=== PATIENT | male | born 1955 | race Hispanic/Latino ===

== ENCOUNTER 2017-02-16 19:42 | Emergency (ER) | payer BC ==
[2017-02-16 19:42] VITALS: BMI 26.4
[2017-02-16 20:25] VITALS: TEMP 98.7
[2017-02-16 22:20] LABS: ADD MANUAL DIFF? NO
[2017-02-16 22:29] LABS: BASO # 0.03 K/mm3 (0.0-2.0); BASO % 0.5 % (0.0-3.0); EOS # 0.1 (0.0-0.7); EOS % 1.1 % (1.5-5.0); GRAN # 3.26 (1.4-6.5); GRAN % 52.7 % (50.0-68.0); HEMATOCRIT 41.1 % (42.0-52.0); LYMPH # 2.3 (1.2-3.4); LYMPH % 37.1 % (22.0-35.0); MEAN CORPUSCULAR HEMOGLOBIN 30.1 pg (25.0-35.0); MEAN CORPUSCULAR HGB CONC 35.8 g/dl (31.0-37.0); MEAN PLATELET VOLUME 10.3 fl (7.0-11.0); MONO # 0.5 (0.1-0.6); MONO % 8.6 % (1.0-6.0); PLATELET COUNT 136 10^3/uL (120.0-450.0); RED CELL DISTRIBUTION WIDTH 13.2 % (11.5-14.5); WHITE BLOOD COUNT 6.2 10^3/ul (4.5-11.0)
--- NOTE | 2017-02-16 22:29 | ED PDOC ---
Arrival/HPI - General Chief Complaint: Lower Extremity Problem/Injury Time Seen by Provider: 02/16/17 20:34 Historian: Patient - History of Present Illness Narrative History of Present Illness (Text): 02/16/17 22:30 61 y.o. male whose PMHx includes HTN and hyperlipidemia who was in the hospital recently with LLE pain and found to have an ACL and meniscal tear. He had improved but about 9 days ago while stepping off his truck injured his left knee and caused a recurrence of pain to it. He is scheduled for arthroscopic knee surgery in [place] in 3 days. He comes to the ED today with complaint of left calf pain developing over the past 2-3 days. No cp or sob or fever or abd pain or n/v or bleeding. Past Medical History - Infectious Disease Hx of Infectious Diseases: None - Tetanus Immunization Tetanus Immunization: Up to Date - Cardiac Hx Hypertension: Yes Hx Pacemaker: No - Pulmonary Hx Respiratory Disorders: No - Neurological Hx Neurological Disorder: No Hx Paralysis: No - HEENT Hx HEENT Disorder: No - Renal Hx Renal Disorder: No - Endocrine/Metabolic Hx Endocrine Disorders: No - Hematological/Oncological Hx Blood Disorders: No Hx Blood Transfusions: No - Integumentary Hx Dermatological Disorder: No - Musculoskeletal/Rheumatological Hx Musculoskeletal Disorders: Yes Other/Comment: L KNEE INJURY - Gastrointestinal Hx Gastrointestinal Disorders: No - Genitourinary/Gynecological Hx Genitourinary Disorders: No - Psychiatric Hx Psychophysiologic Disorder: No Hx Emotional Abuse: No Hx Physical Abuse: No Hx Substance Use: No - Past Surgical History Past Surgical History: Non-Contributing - Surgical History Hx Orthopedic Surgery: Yes - Anesthesia Hx Anesthesia: No Hx Anesthesia Reactions: No Hx Malignant Hyperthermia: No - Suicidal Assessment Feels Threatened In Home Enviroment: No Family/Social History Family/Social History: Unknown Family HX Smoking Status: Never Smoked Hx Alcohol Use: Yes (OCCASIONAL GLASS OF WINE) Hx Substance Use: No Hx Substance Use Treatment: No Allergies/Home Meds Allergies/Adverse Reactions: Allergies guaifenesin [From Mucinex] Allergy (Verified 02/16/17 20:20) RASH Home Medications: Home Meds Medication Instructions Recorded Confirmed Aliskiren [Tekturna] 150 mg PO DAILY 11/29/15 02/16/17 [id number] Ethyl Esters [Lovaza] 1 gm PO DAILY 11/29/15 02/16/17 Review of Systems - Review of Systems Constitutional: absent: Fevers Respiratory: absent: SOB Cardiovascular: absent: Chest Pain Gastrointestinal: absent: Abdominal Pain, Nausea, Vomiting Genitourinary Male: absent: Dysuria Musculoskeletal: Other (Left leg pain) Neurological: absent: Dizziness Hemo/Lymphatic: absent: Easy Bleeding, Easy Bruising Physical Exam Vital Signs Temp Pulse Resp BP Pulse Ox 02/16/17 20:21 98.7 F 75 16 156/86 H 97 Temperature: Afebrile Blood Pressure: Normal Pulse: Regular Respiratory Rate: Normal Appearance: Positive for: Well-Appearing, Non-Toxic, Comfortable Pain Distress: None Mental Status: Positive for: Alert and Oriented X 3 - Systems Exam Head: Present: Atraumatic, Normocephalic Pupils: Present: PERRL Mouth: Present: Moist Mucous Membranes Pharnyx: Present: Normal. No: ERYTHEMA, EXUDATE Neck: Present: Normal Range of Motion Respiratory/Chest: Present: Clear to Auscultation, Good Air Exchange. No: Respiratory Distress, Accessory Muscle Use Cardiovascular: Present: Regular Rate and Rhythm, Normal S1, S2. No: Murmurs Abdomen: Present: Normal Bowel Sounds. No: Tenderness, Distention, Peritoneal Signs Lower Extremity: Present: NORMAL PULSES, Normal ROM, Swelling, Other (There is mild swelling of the inferior knee and primarily left calf swelling compared with right calf; normal DP pulse; FROM of knee is present). No: Cyanosis, Erythema Neurological: Present: GCS=15, CN II-XII Intact, Speech Normal Skin: Present: Warm, Dry, Normal Color. No: Rashes Psychiatric: Present: Alert, Oriented x 3, Normal Insight, Normal Concentration Medical Decision Making ED Course and Treatment: Patient with noted history of L calf pain; no cp or sob. He already had xrays done 7 weeks ago; no indication to repeat. Differential: DVT vs muscle strain -> Will obtain LE doppler to r/o DVT 02/16/17 22:35 Patient's LE doppler is showing L leg DVT in the distal femoral, popliteal, posterior tibial, and peroneal vein DVTs. Patient denies any cp or sob and has normal vitals; no indication to get chest CT to r/o PE. Patient with no contraindications to starting eliquis. Discussed risks and benefits of beginning it vs. lovenox/coumadin. As discussed with patient, preference for eliquis, so will start on eliquis. Will check labs and plan to discharge on eliquis, and he will follow up with his PMD who will monitoring his dosing and progress. 02/16/17 22:43 Patient's creatinine is 1.6; does not alter eliquis dose, but patient informed to follow up with PMD. - Lab Interpretations Lab Results: 02/16/17 22:10 02/16/17 22:10 Lab Results 02/16/17 22:10: WBC 6.2, RBC 4.89, Hgb 14.7, Hct 41.1 L, MCV 84.0, MCH 30.1, MCHC 35.8, RDW 13.2, Plt Count 136, MPV 10.3, Gran % 52.7, Lymph % (Auto) 37.1 H , Warren % (Auto) 8.6 H, Eos % (Auto) 1.1 L, Baso % (Auto) 0.5, Gran # 3.26, Lymph # 2.3, Warren # 0.5, Eos # 0.1, Baso # 0.03, PT 11.0, INR 1.02, APTT 26.8, Sodium 141, Potassium 4.0, Chloride 102, Carbon Dioxide 29, Anion Gap 14, BUN 23 H, Creatinine 1.6 H, Est GFR ( Amer) 53, Est GFR (Non-Af Amer) 44, Random Glucose 110, Calcium 10.1, Total Bilirubin 0.6, AST 29, ALT 36, Alkaline Phosphatase 42, Total Protein 7.9, Albumin 4.2, Globulin 3.7, Albumin/Globulin Ratio 1.1 - RAD Interpretation Radiology Orders: 02/16/17 20:39 DUPLEX LOWER EXTRM VEIN LEFT [US] Stat - Medication Orders Current Medication Orders: Discontinued Medications Apixaban (Eliquis) 10 mg PO ONCE STA PRN Reason: Protocol Stop: 02/16/17 21:50 Last Admin: 02/16/17 22:29 Dose: 10 MG Disposition/Present on Arrival - Present on Arrival Any Indicators Present on Arrival: No History of DVT/PE: No History of Uncontrolled Diabetes: No Urinary Catheter: No History of Decub. Ulcer: No History Surgical Site Infection Following: None - Disposition Have Diagnosis and Disposition been Completed?: Yes Diagnosis: Deep vein thrombosis of left lower extremity Disposition: HOME/ ROUTINE Disposition Time: 22:45 Patient Plan: Discharge Patient Problems: Current Active Problems Problem Status Diagnosed Deep vein thrombosis of left lower extremity Acute Condition: GOOD Discharge Instructions (ExitCare): Deep Venous Thrombosis (ED), Apixaban (By mouth) Additional Instructions: Take the eliquis as prescribed at 10mg twice daily for 1 week then lower to 5 mg twice daily, to be arranged by your primary care doctor. Monitor with your primary care doctor your creatinine level and possible change of your blood pressure medicine. Return to the emergency department if any new concerning symptoms. Prescriptions: Apixaban [Eliquis] 2 tab PO BID #28 tab
[2017-02-16 22:33] LABS: INR 1.02 (0.93-1.08); PARTIAL THROMBOPLASTIN TIME 26.8 Seconds (23.7-30.8)
[2017-02-16 22:34] LABS: ALB/GLOB RATIO 1.1 (1.1-1.8); BILIRUBIN,TOTAL 0.6 mg/dL (0.2-1.3); CALCIUM 10.1 mg/dL (8.4-10.5); TOTAL PROTEIN 7.9 g/dL (5.8-8.3)
[2017-02-16 23:02] VITALS: BP 132/76; PULSE 76; RESP 17; O2SAT 98
--- NOTE | 2017-02-17 09:48 | US ---
PROCEDURE: Left lower extremity venous US HISTORY: Leg pain and swelling. Evaluate for DVT. PHYSICIAN(S): Sedrick Stewart MD. TECHNIQUE: Duplex sonography and color-flow Doppler with graded compression were used to evaluate the deep venous system of the left lower extremity. FINDINGS: Occlusive acute thrombus is noted in the distal left femoral vein, popliteal vein, and visualized tibial veins. The proximal to mid left femoral vein and left common femoral vein are patent and compressible. IMPRESSION: 1. Acute, occlusive thrombus in the distal left femoral vein, popliteal vein, and visualized tibial veins.
== END 2017-02-16 23:01 | disposition home or self-care (01) ==
LOC: ED 19:42
DX: I82.412 Acute embolism and thrombosis of left femoral vein (principal); I82.432 Acute embolism and thrombosis of left popliteal vein; I82.442 Acute embolism and thrombosis of left tibial vein